=== PATIENT | male | born 1960 | race Caucasian/White ===

== ENCOUNTER 2020-11-24 06:47 | Day surgery (SDC) | payer OTHER ==
[2020-11-19 15:50] LABS: RBC Red Blood Cell Count 4.83 M/uL (4.33-5.43)
[2020-11-19 15:51] LABS: Basophils % 0.8 % (0-1.3); Lymphocytes % 21.3 % (15.3-44.8); MPV 8.6 fL (7.6-11.3)
[2020-11-19 15:55] LABS: Protime INR 0.88
--- NOTE | 2020-11-19 15:56 | RAD REPORT ---
EXAM DESCRIPTION: RAD - Chest Pa And Lat (2 Views) - 11/19/2020 3:38 pm CLINICAL HISTORY: PreOp COMPARISON: Abdomen Pelvis Wo Contrast dated 01/24/2019 FINDINGS: Lines: None. Lungs: No evidence of edema or pneumonia. Pleural: Convex structure along the right mid lung lateral hemothorax. This measures approximately 3. 7 x 1.5 cm . Cardiac: The heart size is within normal limits. Bones: No acute fractures. Other: IMPRESSION: No acute cardiopulmonary disease. Convexity located laterally along the right mid lung c ould be a healed rib fracture, overlapping osseous anatomy simulating a lesion, or pleural based lesi on. Nonemergent chest CT could confirm if clinically indicated.
[2020-11-19 15:59] LABS: Potassium 4.8 mmol/L (3.5-5.1)
--- NOTE | 2020-11-20 18:24 | EKG ---
Test Date: 2020-11-19 Test Time: 14:16:03 Analysis Evaluator: JEN MEASUREMENT RESULTS: Intervals: Rate: 68 AK: 182 QRSD: 90 QT: 394 QTc: 418 [place]: P: 70 AK: 182 QRS: 74 T: 61 INTERPRETIVE STATEMENTS: Normal sinus rhythm Normal ECG No previous ECG available for comparison Electronically Signed On 11-20-20 18:21:03 CDT by Momo Winn
[2020-11-24] MEDS ORDERED: Ringers Lactate 1,000 ML IV ONE (07:35)
[2020-11-24] MEDS ORDERED: CEFAZOLIN/SWI 1gm 1 GM/10 ML SYR ONE ×2 (07:35→09:06)
[2020-11-24] MEDS ORDERED: FENTANYL CITR 100 MCG/2 ML ONE (08:23)
[2020-11-24] MEDS ORDERED: MIDAZOLAM HCL 2 MG/2 ML INJ ONE (08:23)
[2020-11-24] MEDS ORDERED: propofoL 200 MG/20 ML VIAL IV ONE (08:23)
[2020-11-24] MEDS ORDERED: LIDOCAINE 1% MPF 5 ML VIAL ONE (08:24)
[2020-11-24] MEDS ORDERED: dexAMETHasone 10 MG/ML VIAL ONE (08:24)
[2020-11-24] MEDS ORDERED: ONDANSETRON 4 MG/2 ML VIAL ONE (08:24)
[2020-11-24] MEDS ORDERED: KETOROLAC 30 MG/ML INJ ONE (08:24)
[2020-11-24] MEDS ORDERED: CODEINE 30MG/APAP 300MG TAB PO PRN (09:41)
[2020-11-24] MEDS ORDERED: PHENAZOPYRIDINE 100MG TAB PO ONE ×2 (09:41→11:03)
[2020-11-24 10:37] VITALS: BP 124/69; TEMP 97.5; O2SAT 100
--- NOTE | 2020-11-24 10:45 | OP ---
Date of Procedure: 11/24/2020 Surgeon: NITIN LIANG Preoperative Diagnoses: 1.Voiding dysfunction/lower urinary tract obstructive symptoms. 2.Benign prostatic hypertrophy. 3.Poor detrusor contractility. 4.Primary bladder neck obstruction/dysfunction. Postoperative Diagnoses: 1.Voiding dysfunction/lower urinary tract obstructive symptoms. 2.Benign prostatic hypertrophy. 3.Poor detrusor contractility. 4.Primary bladder neck obstruction/dysfunction. Principle Procedures: Cystoscopy and transurethral resection of the prostate bladder neck. Indication For Procedure: Mr. Lau presented to the Urology Clinic with bothersome lower urinary sy mptoms. He underwent evaluation cystoscopically revealing mild elevation of a median bar with minima l lateral lobar hypertrophy. So, this was followed by urodynamic evaluation, which revealed evidence of voiding dysfunction with pseudodyssynergia and relatively weak detrusor contractility. The combi nation of each of these features was likely contributing to his poor flow and stream and bothersome u rinary symptoms, so I discussed with him options for surgical management since he was dissatisfied wi th medical management alone. Transurethral resection or incision of the prostate at the bladder neck was discussed to relieve the component of obstruction present there recognizing it may not completel y eliminate all of his symptoms given the weakness of his bladder, but it should decrease at least th e degree of the obstruction. The potential for retrograde ejaculation was also discussed and the pat ient decided to proceed, especially noting he already had the retrograde ejaculation from the medical therapy. Procedure In Detail: The patient was consented in the preoperative holding area before being transfe rred to the operative suite where general anesthesia was induced. He was given Ancef 2 g IV antimicr obial prophylaxis and pneumo boots were provided for DVT prophylaxis. He was placed in the lithotomy position, padded and secured to the table appropriately. His genitalia were prepped using Hibiclens and he was draped in standard fashion. The case was begun using urethral sounds to dilate the meatu s and fossa navicularis to 30-Swiss. Then, using the visual obturator and a 26-Swiss resectoscope, the urethra was traversed and the bladder entered with ease. The bladder was then surveyed and agai n no mucosal lesions, foreign bodies or stones were noted. The elevation of the median bar was noted relative to the bladder neck and the minimal lateral lobar hypertrophy was also noted. As a result, I distended his bladder gently and began the resection of the elevated median bar resecting it down to the level of the bladder neck continuing the resection of that median bar down to the level of the verumontanum. The verumontanum was left intact, once the median bar was completely resected and the re was a smooth move trough, the resection was continued bilaterally to the 5 o'clock and 7 o'clock p ositions respectively to eliminate any lateral to medial lobar hypertrophy and intrusion in that luis on. Once this was done, a careful fulguration of all bleeding sites was then performed, then I remov ed all prostate chips by evacuating his bladder. I then gently refilled his bladder again fulguratin g any bleeding vessels until the area was completely hemostatic. The survey of the prostatic urethra revealed a widely patent channel from the verumontanum all the way into the bladder. As a result, I left his bladder partially full and surveyed the urethra on the way out. I then placed a 22-Swiss 3-way Viramontes catheter into his bladder with ease, and approximately 30 mL of sterile water was placed in the balloon. The catheter was placed to a StatLock, and the patient was taken out of the lithotom y position. He was then awakened from general anesthesia, transferred to a stretcher, and then trans ferred to the recovery room in good condition. Complications: None. Discharge Disposition: He will follow up in the Urology Clinic within 3-5 days for catheter removal. Alternatively, he may elect to remove the catheter himself at home on Monday at the earliest, no la ter than 7 a.m. noting that if he is unable to void easily by 1 p.m., he should contact my office imm ediately for potential re-insertion of the catheter. Subsequent followup should be established with me in about 2 or 3 months interval assessme nt. EILEEN/MARKOSL Voice ID: [id number] Report ID: [id number]
[2020-11-24] MEDS ORDERED: CODEINE 30MG/APAP 300MG TAB ONE (11:03)
== END 2020-11-24 11:45 | disposition home or self-care (01) ==
LOC: OR 06:47
PROVIDERS: ATTEND Urology
PROC: 0VT08ZZ Resection of Prostate, Via Natural or Artificial Opening Endoscopic (ICD-10-PCS; principal; 2020-11-24 08:15)
DX: N40.1 Benign prostatic hyperplasia with lower urinary tract symptoms (principal); N39.8 Other specified disorders of urinary system; Z20.822 Contact with and (suspected) exposure to COVID-19
CPT/HCPCS: 93005; 87088; 85025; 87086; 80048; 36415; 85610; 88305; 71046; 52601; U0003; J2704; J2250; J3010; J1100; J0690 ×2; J7120; J2405

== ENCOUNTER 2021-05-18 09:38 | Day surgery (SDC) | payer OTHER ==
[2021-05-14 16:03] LABS: RBC Red Blood Cell Count 5.16 M/uL (4.33-5.43)
[2021-05-14 16:04] LABS: Absolute Lymphocytes (CBC) 1.3 K/uL (0.7-4.9); Hematocrit 45.8 % (39.6-49.0); Lymphocytes % 25.7 % (15.3-44.8)
[2021-05-14 16:15] LABS: Protime INR 0.99
[2021-05-14 16:26] LABS: Potassium 3.7 mmol/L (3.5-5.1)
[2021-05-18] MEDS ORDERED: Ringers Lactate 1,000 ML IV ONE (10:08)
[2021-05-18] MEDS ORDERED: CEFAZOLIN/SWI 2gm 2 GM/20 ML SYR ONE (10:08)
[2021-05-18] MEDS ORDERED: ACETAMINOPHEN 500 MG TAB ONE (11:30)
[2021-05-18] MEDS ORDERED: CELECOXIB 100 MG CAPSULE ONE (11:30)
[2021-05-18] MEDS ORDERED: MIDAZOLAM HCL 2 MG/2 ML INJ ONE (12:46)
[2021-05-18] MEDS ORDERED: propofoL 200 MG/20 ML VIAL IV ONE (12:46)
[2021-05-18] MEDS ORDERED: LIDOCAINE 1% MPF 5 ML VIAL ONE (12:46)
[2021-05-18] MEDS ORDERED: FENTANYL CITR 100 MCG/2 ML ONE (12:46)
[2021-05-18] MEDS ORDERED: ONDANSETRON 4 MG/2 ML VIAL ONE (12:47)
[2021-05-18] MEDS ORDERED: CODEINE 30MG/APAP 300MG TAB PO PRN (13:08)
[2021-05-18 13:44] VITALS: O2SAT 100
[2021-05-18 15:15] VITALS: BP 129/68; TEMP 97.5
--- NOTE | 2021-05-18 20:19 | OP ---
Surgeon: NITIN LIANG Preoperative Diagnoses: 1.BPH with lower urinary tract symptoms. 2.Status post TUR of the bladder neck. Postoperative Diagnoses: 1.BPH with lower urinary tract symptoms. 2.Status post TUR of the bladder neck. Principal Procedure: UroLift/prostatic urethral lift with 3 implants placed. Indication For Procedure: Mr. Lau is a 60-year-old gentleman, who presented to Urology Clinic with obstructive lower urinary symptoms and only mild BPH noted on cystoscopic evaluation. He underwent urodynamic evaluation which revealed stigmata suggestive of primary bladder neck dysfunction, and he underwent TUR of the bladder neck. This did improve his symptoms somewhat and improved his emptying to a degree, but he had persistent obstructive symptoms that were mildly bothersome to him. As a res ult, he was counseled that further improvement in his urinary symptoms would only be achieved by pote ntial further management of the residual lateral lobar hypertrophy. As a result, he was counseled on the options for management and UroLift was discussed and agreed upon. Procedure In Detail: The patient was consented in the preoperative holding area before being transfe rred to operative suite where general anesthesia was induced. He was given Ancef 2 g IV antimicrobia l prophylaxis and pneumo boots were provided for DVT prophylaxis. He was placed in the lithotomy pos ition, padded and secured to the table appropriately. His genitalia were prepped using Hibiclens and draped in standard fashion. The case was begun using a 20-[place] cystoscope for the UroLift device. The urethra was traversed and the bladder entered. The bladder was decompressed of fluid and urine , and there were no mucosal lesions, foreign bodies or stones noted throughout. The prior evidence o f TUR of the bladder neck with a widely patent bladder neck was observed. There was [id number] lateral lobar hypertrophy and the length of the gland was only approximately 3 cm. As a result, the initial implant was determined to be placed in the region of the verumontanum in the left lateral lo be of the prostate first. As a result, the first treatment was applied just superior to the verumont rhoda and the anterior 1/3 of the lateral lobe on the left side. The distal tip of the delivery devic e was angled laterally approximately 20 degrees to compress the lateral lobe. The trigger was pulled thereby deploying a needle containing the implant through the prostate. The needle was retracted, a llowing one end of the implant to be delivered to the capsular surface of the prostate. The implant was then tensioned to assure capsular seeding and removal slack monofilament. The device was then an gled back toward midline and slowly advance proximally until cystoscopic verification of the monofila ment being centered in the delivery bay. The urethral end piece was then affixed to the monofilament thereby tailoring the size of the implant. Excess filament was then severed. The delivery device w as then readvanced into the bladder. The delivery device was then replaced with a second delivery de vice, and a similar implant was placed in the contralateral right lateral lobe at the level of the ve rumontanum. I then readvanced the device back into the bladder and removed it and switched it for th e cystoscope bridge. I then surveyed the channel that had been created. While nice channel had larg lauren been created, there was a degree of asymmetry with some slight left anterior lateral overhang fro m the anterior. As a result, I elected to place one additional implant in a stacked fashion above th e originally placed implant on the left in a more anterior position, and I was able to elevate that t issue creating a very nice symmetric open anterior channel from the bladder neck all the way down to the view of the prostate. The bladder was observed cystoscopically with it being decompressed and th e channel was yet still patent. I then surveyed the bladder neck for any sign of implant inadvertent ly placed into the bladder, and none was noted. I then left his bladder full and removed the cystosc ope replacing it with an 18-[place] urethral Viramontes catheter. 15 cc of sterile water was placed in the balloon, and the catheter was connected to a leg bag. The patient was taken out of the lithotomy po sition, awakened from general anesthesia, transferred to a stretcher, and then transferred to the rec overy room in good condition. Complications: None. Discharge Disposition: He should remove the urethral Viramontes catheter tomorrow at 7 a.m. and ensure th at he is able to void by 1 to 3 p.m. with ease. If not, he should contact the office and come in for catheter replacement. Subsequent followup should be established in about 1 month to reassess his sy mptomatology since the UroLift. At that time, we will consider having him discontinue all BPH relate d medications. WR/MODL Voice ID: [id number] Report ID: [id number]
== END 2021-05-18 15:05 | disposition home or self-care (01) ==
LOC: OR 09:38
PROVIDERS: ATTEND Urology
PROC: 0T7D8DZ Dilation of Urethra with Intraluminal Device, Via Natural or Artificial Opening Endoscopic (ICD-10-PCS; principal; 2021-05-18 11:30)
DX: N40.1 Benign prostatic hyperplasia with lower urinary tract symptoms (principal); Z20.822 Contact with and (suspected) exposure to COVID-19
CPT/HCPCS: 87088; 85025; 87086; 80048; 36415; 85610; 52441; 52442 ×2; U0003; J2704; J2250; J3010; J0690; J7120; J2405

== ENCOUNTER 2021-05-18 17:15 | Emergency (ER) | payer OTHER ==
--- OUTSIDE RECORDS SUMMARY | 2021-05-18 17:18 | XMS REPORT | Continuity of Care Document ---
:[address] [facility] t Address [address] [place] [address] Care Team Providers Name Role Phone HUGO E Primary Care Physician Unavailable Hugo E Attending Clinician Unavailable Marga PADGETT Attending Clinician Unavailable Marga PADGETT Attending Clinician Unavailable Doctor Unassigned, Name Attending Clinician Unavailable Yessica POON Attending Clinician Payers Payer Name Policy Type Policy Number Effective Date Expiration Date Ashish LOVING PLS [id number] 2021 00:00:00 HMO Problems Condition Condition Condition Status Onset Resolution Last Treating Co mments Source Name Details Category Date Date Treatment Clinician Date Nontraumat Nontraumat Disease Active Overview : Univers ic ic 6-03 Formattin ity of incomplete incomplete 00:00: g of this [place] tear of tear of 00 note Medical left left might be Branch rotator rotator different cuff cuff from the original. Added automatic ally from request for surgery [id number] Traumatic Traumatic Disease Active Overview: Univers complete complete 6-03 Formattin ity of tear of tear of 00:00: g of this [place] right right 00 note Medical rotator rotator might be Branch cuff, cuff, different initial initial from the encounter encounter original. Added automatic ally from request for surgery [id number] Trigger Trigger Disease Active Overview: Univ ers middle middle 7-06 Formattin ity of finger of finger of 00:00: g of this [place] right hand right hand 00 note Me dical might be Branch different from the original. Added automatic ally from request for surgery [id number] Allergies, Adverse Reactions, Alerts Allergy Allergy Status Severity Reaction(s) Onset Inactive Treating Comm ents Source Name Type Date Date Clinician NO KNOWN Drug Active Univers ALLERGIE Class ity of S [facility] Social History Social Habit Start Date Stop Date Quantity Comments Source History SDOH University o f Alcohol Frequency [place] M edical History SDOH University o f Alcohol Std Drinks [place] [facility] Branch History SDHI University o f Alcohol Binge [facility] al Branch Exposure to Not sure [facility] SARS-CoV-2 (event) [facility] Alcohol intake 2021-04-16 2021-04-16 9.71 /d University of 00:00:00 00:00:00 [facility] Cigarettes smoked 2019-09-12 2019-09-12 Univers ity of current (pack per 00:00:00 00:00:00 [place] ) - Reported Branch Tobacco use and 2019-09-12 2019-09-12 Former user Universi ty of exposure 00:00:00 00:00:00 [facility] Alcohol Comment 2017-07-26 2017-07-26 Drinks every Univers ity of 00:00:00 00:00:00 other day. [place] Medical History of Branch Whiskey Drinking. History of tobacco 1974-07-26 2012-07-26 User of Univer sity of use 00:00:00 00:00:00 smokeless [facility] tobacco [place] Sex Assigned At [birth year] Universit y of 00:00:00 00:00:00 [facility] Smoking Status Start Date Stop Date Source Former smoker 2019-09-12 00:00:00 2019-09-12 00:00:00 Universi ty of [facility] Medications Ordered Filled Start Stop Current Ordering Indication Dosage Frequency Signature Comments Components Source Medication Medication Date Date Medication? Clinician (SIG) Name Name cyclobenzap Yes [id number] 5mg Take 1 Univers rine 5 mg 2-11 tablet by ity o f tablet 00:00: mouth 3 [place] 00 (three) Medical times Branch daily. cyclobenzap Yes [id number] 5mg Take 1 Univers rine 5 mg 2-11 tablet by ity o f tablet 00:00: mouth 3 [place] 00 (three) Medical times Branch daily. cyclobenzap 2-0 Yes [id number] 5mg Take 1 Univers rine 5 mg 2-11 tablet by ity o f tablet 00:00: mouth 3 [place] (three) Medical times Branch daily. fluticasone 2020-0 Yes [id number] 1{spray Use 1 Univers propionate 4-30 } [place] in ity o f 50 00:00: each [place] mcg/actuati 00 nostril Medic al on nasal daily. Branch spray fluticasone 2020-0 Yes [id number] 1{spray Use 1 Univers propionate 4-30 } [place] in ity o f 50 00:00: each [place] mcg/actuati 00 nostril Medic al on nasal daily. Branch spray fluticasone 2020-0 Yes [id number] 1{spray Use 1 Univers propionate 4-30 } [place] in ity o f 50 00:00: each [place] mcg/actuati 00 nostril Medic al on nasal daily. Branch spray fluticasone 2020-0 Yes [id number] 1{spray Use 1 Univers propionate 4-30 } [place] in ity o f 50 00:00: each [place] mcg/actuati 00 nostril Medic al on nasal daily. Branch spray fluticasone 2020-0 Yes [id number] 1{spray Use 1 Univers propionate 4-30 } [place] in ity o f 50 00:00: each [place] mcg/actuati 00 nostril Medic al on nasal daily. Branch spray methylPREDN 2020-0 Yes [id number] Take by Univers ISolone 4 3-16 mouth ity of mg tablets 00:00: SEE-INSTRU [place] 00 CTIONS. Medical follow Branch package directions methylPREDN 2020-0 Yes [id number] Take by Univers ISolone 4 3-16 mouth ity of mg tablets 00:00: SEE-INSTRU [place] 00 CTIONS. Medical follow Branch package directions methylPREDN 202-0 Yes [id number] Take by Univers ISolone 4 3-16 mouth ity of mg tablets 00:00: SEE-INSTRU [place] 00 CTIONS. Medical follow Branch package directions methylPREDN 2020-0 Yes [id number] Take by Univers ISolone 4 3-16 mouth ity of mg tablets 00:00: SEE-INSTRU [place] 00 CTIONS. Medical follow Branch package directions methylPREDN 2020-0 Yes [id number] Take by Univers ISolone 4 3-16 mouth ity of mg tablets 00:00: SEE-INSTRU [place] 00 CTIONS. Medical follow Branch package directions methylPREDN 2020-0 Yes [id number] 84mg Take 21 Univers ISolone 6-04 tablets by ity of (MEDROL, 00:00: mouth [place] ANDREAS,) 4 mg 00 SEE-INSTRU Med ical tablets CTIONS. Branch follow package directions methylPREDN 2020-0 Yes [id number] 84mg Take 21 Univers ISolone 6-04 tablets by ity of (MEDROL, 00:00: mouth [place] ANDREAS,) 4 mg 00 SEE-INSTRU Med ical tablets CTIONS. Branch follow package directions methylPREDN 2020-0 Yes [id number] 84mg Take 21 Univers ISolone 6-04 tablets by ity of (MEDROL, 00:00: mouth [place] ANDREAS,) 4 mg 00 SEE-INSTRU Med ical tablets CTIONS. Branch follow package directions methylPREDN 2020-0 Yes [id number] 84mg Take 21 Univers ISolone 6-04 tablets by ity of (MEDROL, 00:00: mouth [place] ANDREAS,) 4 mg 00 SEE-INSTRU Med ical tablets CTIONS. Branch follow package directions methylPREDN 2020-0 Yes [id number] 84mg Take 21 Univers ISolone 6-04 tablets by ity of (MEDROL, 00:00: mouth [place] ANDREAS,) 4 mg 00 SEE-INSTRU Med ical tablets CTIONS. Branch follow package directions doxycycline 2020-0 Yes TAKE 1 Univ ers hyclate 100 5-15 TABLET BY ity of mg tablet 00:00: MOUTH ONCE [place] 00 DAILY WITH Medical FOOD DO Branch NOT LIE DOWN FOR 1 HOUR AFTER TAKING mupirocin 2 2020-0 Yes APPLY A Uni vers % ointment 5-15 SMALL ity of 00:00: AMOUNT TO [place] 00 BOTH NARES Medical ONCE Branch WEEKLY FOR 30 DAYS doxycycline 2020-0 Yes TAKE 1 Univ ers hyclate 100 5-15 TABLET BY ity of mg tablet 00:00: MOUTH ONCE [place] 00 DAILY WITH Medical FOOD DO Branch NOT LIE DOWN FOR 1 HOUR AFTER TAKING mupirocin 2 2020-0 Yes APPLY A Uni vers % ointment 5-15 SMALL ity of 00:00: AMOUNT TO [place] BOTH NARES Medical ONCE Branch WEEKLY FOR 30 DAYS doxycycline 2020-0 Yes TAKE 1 Univ ers hyclate 100 5-15 TABLET BY ity of mg tablet 00:00: MOUTH ONCE [place] 00 DAILY WITH Medical FOOD DO Branch NOT LIE DOWN FOR 1 HOUR AFTER TAKING mupirocin 2 2020-0 Yes APPLY A Uni vers % ointment 5-15 SMALL ity of 00:00: AMOUNT TO [place] BOTH NARES Medical ONCE Branch WEEKLY FOR 30 DAYS doxycycline 2020-0 Yes TAKE 1 Univ ers hyclate 100 5-15 TABLET BY ity of mg tablet 00:00: MOUTH ONCE [place] 00 DAILY WITH Medical FOOD DO Branch NOT LIE DOWN FOR 1 HOUR AFTER TAKING mupirocin 2 2020-0 Yes APPLY A Uni vers % ointment 5-15 SMALL ity of 00:00: AMOUNT TO [place] BOTH NARES Medical ONCE Branch WEEKLY FOR 30 DAYS doxycycline 2020-0 Yes TAKE 1 Univ ers hyclate 100 5-15 TABLET BY ity of mg tablet 00:00: MOUTH ONCE [place] 00 DAILY WITH Medical FOOD DO Branch NOT LIE DOWN FOR 1 HOUR AFTER TAKING mupirocin 2 2020-0 Yes APPLY A Uni vers % ointment 5-15 SMALL ity of 00:00: AMOUNT TO [place] BOTH NARES Medical ONCE Branch WEEKLY FOR 30 DAYS fluticasone 2020-0 Yes USE 2 Unive rs propionate 5-12 SPRAY(S) ity o f 50 00:00: IN EACH [place] mcg/actuati 00 NOSTRIL Medic al on nasal TWICE Branch spray DAILY fluticasone 2020-0 Yes USE 2 Unive rs propionate 5-12 SPRAY(S) ity o f 50 00:00: IN EACH [place] mcg/actuati 00 NOSTRIL Medic al on nasal TWICE Branch spray DAILY fluticasone 2020-0 Yes USE 2 Unive rs propionate 5-12 SPRAY(S) ity o f 50 00:00: IN EACH [place] mcg/actuati 00 NOSTRIL Medic al on nasal TWICE Branch spray DAILY fluticasone 2020-0 Yes USE 2 Unive rs propionate 5-12 SPRAY(S) ity o f 50 00:00: IN EACH [place] mcg/actuati 00 NOSTRIL Medic al on nasal TWICE Branch spray DAILY fluticasone 2020-0 Yes USE 2 Unive rs propionate 5-12 SPRAY(S) ity o f 50 00:00: IN EACH [place] mcg/actuati 00 NOSTRIL Medic al on nasal TWICE Branch spray DAILY tamsulosin Yes TAKE 1 Unive rs 0.4 mg 24 4-17 CAPSULE BY ity of hr capsule 00:00: MOUTH ONCE [place] 00 DAILY FOR Medical 90 DAYS Branch tamsulosin 2019-0 Yes TAKE 1 Unive rs 0.4 mg 24 4-17 CAPSULE BY ity of hr capsule 00:00: MOUTH ONCE [place] DAILY FOR Medical 90 DAYS Branch tamsulosin 0 Yes TAKE 1 Unive rs 0.4 mg 24 4-17 CAPSULE BY ity of hr capsule 00:00: MOUTH ONCE [place] DAILY FOR Medical 90 DAYS Branch tamsulosin Yes TAKE 1 Unive rs 0.4 mg 24 4-17 CAPSULE BY ity of hr capsule 00:00: MOUTH ONCE [place] DAILY FOR Medical 90 DAYS Branch tamsulosin Yes TAKE 1 Unive rs 0.4 mg 24 4-17 CAPSULE BY ity of hr capsule 00:00: MOUTH ONCE [place] DAILY FOR Medical 90 DAYS Branch Tamsulosin Tamsulosin 0 2020- No Rosibel [address] [facility] HCl HCl 4-17 10-14 Guanako Freeman - 00:00: 00:00 Memoria 00 :00 [facility] ent Clinics CITALOPRAM Yes TAKE 1 Unive rs 20 mg 6-06 TABLET BY ity of tablet 00:00: MOUTH ONCE [place] DAILY Medical Branch CITALOPRAM Yes TAKE 1 Unive rs 20 mg 6-06 TABLET BY ity of tablet 00:00: MOUTH ONCE [place] DAILY Medical Branch CITALOPRAM Yes TAKE 1 Unive rs 20 mg 6-06 TABLET BY ity of tablet 00:00: MOUTH ONCE [place] DAILY Medical Branch CITALOPRAM Yes TAKE 1 Unive rs 20 mg 6-06 TABLET BY ity of tablet 00:00: MOUTH ONCE DAILY Medical Branch CITALOPRAM Yes TAKE 1 Unive rs 20 mg 6-06 TABLET BY ity of tablet 00:00: MOUTH ONCE [place] DAILY Medical Branch Vital Signs Vital Name Observation Time Observation Value Comments Source Body temperature 2021-04-14 14:49:00 36.06 Tran [facility] [place] [facility] Body height 2021-04-14 14:49:00 175.3 cm [facility] Body weight 2021-04-14 14:49:00 81.874 kg [facility] BMI 2021-04-14 14:49:00 26.66 kg/m2 [facility] Procedures Procedure Date / Time Performing Clinician Source Performed INSURANCE CORRESPONDENCE 2021-04-22 06:01:00 Doctor Unassigned, [facility] Encounters Start End Encounter Admission Attending Care Care Encounter Source Date/Time Date/Time Type Type Clinicians Facility Department ID 2021-05-11 Outpatient Arias, STLMLC STLC [id number] [facility] 08:34:01 Ernesto [id number] [facility] 2021-03-31 Outpatient Arias, STLMLC STLMLC [id number] [facility] 13:46:52 Ernesto [id number] [facility] 2021-03-31 Outpatient Arias, STLMLC STLMLC [id number] [facility] 13:42:03 Ernesto [id number] [facility] 2021-03-31 Outpatient Arias, STLMLC STLMLC [id number] [facility] 13:21:38 Ernesto [id number] [facility] 2021-06-24 2021-06-24 Outpatient R [facility] [id number] Univers 19:30:00 19:30:00 [id number] [facility] 2021-06-24 2021-06-24 Outpatient R NICK PADGETT [facility] [id number] Univers 19:30:00 19:30:00 NICK PADGETT [facility] 2021-05-29 2021-05-29 Outpatient R [facility] [id number] Univers 19:30:00 19:30:00 [id number] [facility] 2021-05-29 2021-05-29 Outpatient R NICK PADGETT [facility] [id number] Univers 19:30:00 19:30:00 NICK PADGETT [facility] 2021-05-27 2021-05-27 Outpatient R [facility] [id number] Univers 13:00:00 13:00:00 [id number] ity of [facility] 2021-05-27 2021-05-27 Outpatient R [facility] [id number] Univers 13:00:00 13:00:00 ity of [facility] 2021-04-26 2021-04-26 ambulatory [facility]LMLC [facility] [id number] [facility] 2021-04-22 2021-04-22 Orders Doctor RUKHSANA [id number] Univers 00:00:00 00:00:00 Only Unassigned, JASMYNE [id number] ity of [facility] [id number] [place] as [id number] [address] 2021-04-22 2021-04-22 Telephone [facility] [id number] Univers 00:00:00 00:00:00 Alexy CHAU [id number] i ty of [facility] [id number] [place] [id number] [facility] [address] 2021-04-21 2021-04-21 Telephone [facility] [id number] Univers 00:00:00 00:00:00 Alexy CHAU [id number] i ty of [facility] [id number] [id number] [address] 2021-04-14 2021-04-14 Office [facility] [id number] Univers 09:00:00 09:15:00 Visit Alexy CHAU [id number] i ty of [facility] [id number] [place] [id number] [address] 2021-03-17 2021-03-17 ambulatory [facility]LMLC [facility] [id number] [facility] 2021-01-27 2021-01-27 ambulatory [facility]LMLC [facility] [id number] [facility] 2021-01-27 2021-01-27 ambulatory [facility]MLC [facility] [id number] [facility] 2020-11-27 2020-11-27 Outpatient [facility]ML[facility] [id number] [facility] 2020-11-11 2020-11-11 Outpatient [facility] [id number] [facility] 2020-10-28 2020-10-28 ambulatory [facility]LMLC [facility] [id number] [facility] 2020-09-28 2020-09-28 Outpatient [facility]MLC [facility] [id number] [facility] 2020-07-23 2020-07-23 Outpatient [facility]MLC [facility] [id number] [facility] 2020-07-08 2020-07-08 Outpatient [facility]LMLC [facility] [id number] [facility] 2020-05-27 2020-05-27 Outpatient [facility]MLC [facility] [id number] [facility] 2019-11-28 2019-11-28 Outpatient [facility]MLC [facility] [id number] [facility] 2019-09-13 2019-09-13 Outpatient Alysha Medellin [id number] [facility] 13:01:00 13:01:00 t Specialty/U Melody kes - Specialty rology [facility] /Urology Clinic l Clinic Outpati ent Clinics 2019-08-27 2019-08-27 Outpatient Alysha Encarnaciont [id number] [facility] 10:26:00 10:26:00 t [facility] 2019-06-21 2019-06-21 [facility] [id number] [facility] [address] 10:40:00 10:40:00 t Specialty/U Melody monges - Specialty rology [facility] a /Urology Clinic [facility] Results This patient has no known results.
--- NOTE | 2021-05-18 18:00 | ER ---
Nurse's Notes [facility] Name: Ray Lau Age: 60 yrs Sex: Male : 1960 Arrival Date: 05/18/2021 Time: 17:17 Bed 15 Private MD: Diagnosis: Viramontes Catheter problem;Urinary urgency Presentation: 05/18 17:35 Chief complaint: Patient states: Had a urolift 3 hours ago, reports 1 tablespoon out jl7 since. Coronavirus screen: At this time, the client does not indicate any symptoms associated with coronavirus-19. Ebola Screen: No symptoms or risks identified at this time. 17:35 Method Of Arrival: Ambulatory jl7 17:35 Initial Sepsis Screen: Does the patient meet any 2 criteria? No. Patient's initial jl7 sepsis screen is negative. Does the patient have a suspected source of infection? No. Patient's initial sepsis screen is negative. Risk Assessment: Do you want to hurt yourself or someone else? Patient reports no desire to harm self or others. Onset of symptoms was May 18, 2021 at 15:00. 17:35 Acuity: ANITA 3 jl7 Triage Assessment: 18:01 General: Appears in no apparent distress. uncomfortable, Behavior is calm, cooperative, jl7 appropriate for age. Pain: Complains of pain in pelvis Pain currently is 0 out of 10 on a pain scale. at worst was 7 out of 10 on a pain scale. Neuro: Historical: - Allergies: 18:01 No Known Allergies; jl7 - Home Meds: 18:01 None [Active]; jl7 - PMHx: 18:01 None; jl7 - PSHx: 18:01 TURP; urolift; jl7 - Immunization history:: Client reports receiving the 2nd dose of the Covid vaccine. - Social history:: Smoking status: Patient/guardian denies using tobacco, the patient reports quitting approximately 2 years ago. Screenin:37 Abuse screen: Denies threats or abuse. Nutritional screening: No deficits noted. ap3 Tuberculosis screening: No symptoms or risk factors identified. 18:06 Fall Risk None identified. ap3 Vital Signs: 17:35 Weight 81.65 kg; Height 5 ft. 9 in. (175.26 cm); Pain 7/10; jl7 17:44 BP 164 / 91; Pulse 62; Pulse Ox 100% on R/A; ap3 17:35 Body Mass Index 26.58 (81.65 kg, 175.26 cm) jl7 ED Course: 17:17 Patient arrived in ED. mr 17:18 Ceasar Martinez DO is Attending Physician. ms3 17:38 Arm band placed on right wrist. ap3 17:50 Bladder scan completed. 36 mL. jl7 17:58 Lázaro Mcwilliams MD is Referral Physician. ms3 18:01 Triage completed. jl7 18:05 Yecenia Mercado, RN is Primary Nurse. ap3 18:05 No provider procedures requiring assistance completed. Patient did not have IV access ap3 during this emergency room visit. 18:06 Patient has correct armband on for positive identification. Placed in gown. Bed in low ap3 position. Call light in reach. Side rails up X 1. Pulse ox on. NIBP on. Door closed. Noise minimized. Warm blanket given. Administered Medications: No medications were administered Outcome: 18:00 Discharge ordered by . ms3 18:06 Discharged to home ambulatory. ap3 18:06 Condition: good 18:06 Discharge instructions given to patient, Instructed on discharge instructions, follow up and referral plans. Demonstrated understanding of instructions, follow-up care. 18:08 Patient left the ED. ap3 Signatures: Rossana Jones mr RamseyJohn RN RN 7 Yecenia Mercado, NGA SYLVESTER ap3 Ceasar Martinez DO DO ms3
--- NOTE | 2021-05-18 18:00 | EDPHYS ---
Physician Documentation [facility] Name: Ray Lau Age: 60 yrs Sex: Male : 1960 Arrival Date: 05/18/2021 Time: 17:17 Bed 15 Private MD: ED Physician Ceasar Martinez HPI: 05/18 17:36 This 60 yrs old Male presents to ER via Unassigned with complaints of Problem With ms3 Urinary Catheter. 17:36 The patient presents with a Viramontes catheter problem, is not draining. Onset: The ms3 symptoms/episode began/occurred today. Modifying factors: The symptoms are alleviated by nothing, the symptoms are aggravated by nothing. Associated signs and symptoms: The patient has no apparent associated signs or symptoms. 60-year-old male presents status post prostate lift earlier today stating his Viramontes catheter is not draining. Patient states he feels a blood clot has clotted the end of his catheter. Patient states he attempted to blow air into his catheter without success. Patient denies pain at this time. Patient denies alleviating or inciting factors.. Historical: - Allergies: 18:01 No Known Allergies; jl7 - Home Meds: 18:01 None [Active]; jl7 - PMHx: 18:01 None; jl7 - PSHx: 18:01 TURP; urolift; jl7 - Immunization history:: Client reports receiving the 2nd dose of the Covid vaccine. - Social history:: Smoking status: Patient/guardian denies using tobacco, the patient reports quitting approximately 2 years ago. ROS: 17:36 Constitutional: Negative for fever, and chills. Eyes: Negative for injury, pain, ms3 redness, and discharge, ENT: Negative for injury, pain, and discharge, Neck: Negative for injury, pain, and swelling, Cardiovascular: Negative for chest pain, and palpitations. Respiratory: Negative for shortness of breath, cough, wheezing, and pleuritic chest pain, Abdomen/GI: Negative for abdominal pain, nausea, vomiting, diarrhea, and constipation, Back: Negative for injury and pain, MS/Extremity: Negative for injury and deformity, Skin: Negative for injury, rash, and discoloration, Neuro: Negative for headache, weakness, numbness, tingling. 17:36 : Positive for difficulty urinating. 17:36 All other systems are negative. Exam: 17:36 Constitutional: This is a well developed, well nourished patient who is awake, alert, ms3 and in no acute distress. Head/Face: Normocephalic, atraumatic. Eyes: Pupils equal round and reactive to light, extra-ocular motions intact. Lids and lashes normal. Conjunctiva and sclera are non-icteric and not injected. Periorbital areas with no swelling, redness, or edema. Neck: Trachea midline, no cervical lymphadenopathy. Supple, full range of motion without nuchal rigidity, or vertebral point tenderness. No Meningismus. Chest/axilla: Normal chest wall appearance and motion. Nontender with no deformity. Cardiovascular: Regular rate and rhythm with a normal S1 and S2. No gallops, murmurs, or rubs. Normal PMI, no JVD. No pulse deficits. Respiratory: Lungs have equal breath sounds bilaterally, clear to auscultation and percussion. No rales, rhonchi or wheezes noted. No increased work of breathing, no retractions or nasal flaring. Abdomen/GI: Soft, non-tender, with normal bowel sounds. No distension or tympany. No guarding or rebound. No evidence of tenderness throughout. Back: No spinal tenderness. No costovertebral tenderness. Full range of motion. Skin: Warm, dry with normal turgor. Normal color with no rashes, no lesions, and no evidence of cellulitis. Neuro: Awake and alert, GCS 15, oriented to person, place, time, and situation. Cranial nerves II-XII grossly intact. Motor strength 5/5 in all extremities. Sensory grossly intact. Cerebellar exam normal. Normal gait. Vital Signs: 17:35 Weight 81.65 kg; Height 5 ft. 9 in. (175.26 cm); Pain 7/10; jl7 17:44 BP 164 / 91; Pulse 62; Pulse Ox 100% on R/A; ap3 17:35 Body Mass Index 26.58 (81.65 kg, 175.26 cm) jl7 MDM: 17:35 Patient medically screened. ms3 18:00 Differential diagnosis: urinary retention, Viramontes catheter problem. Data reviewed: vital ms3 signs, nurses notes. Data interpreted: Pulse oximetry: on room air is 100 %. Counseling: I had a detailed discussion with the patient and/or guardian regarding: the historical points, exam findings, and any diagnostic results supporting the discharge/admit diagnosis, the need for outpatient follow up, to return to the emergency department if symptoms worsen or persist or if there are any questions or concerns that arise at home. ED course: Discussed physical exam findings with patient. Bladder scan showed 36 cc of urine in patient's bladder. Viramontes catheter with urine drainage. Patient to follow-up with Dr. Mcwilliams in 1 to 2 days. Patient understands and agrees with plan. All questions were answered. Return precautions discussed include worsening symptoms, or any other concerns.. Administered Medications: No medications were administered Disposition Summary: 05/18/21 18:00 Discharge Ordered Location: Home ms3 Problem: new ms3 Condition: Stable ms3 Diagnosis - Viramontes Catheter problem ms3 - Urinary urgency ms3 Followup: ms3 - With: Lázaro Mcwilliams MD - When: 1 - 2 days - Reason: Discharge Instructions: - Discharge Summary Sheet ms3 - Indwelling Urinary Catheter Care, Adult ms3 Forms: - Medication Reconciliation Form ms3 - Thank You Letter ms3 - Antibiotic Education ms3 - Prescription Opioid Use ms3 Signatures: John Ramsey, RN RN jl7 Ceasar Martinez DO DO ms3
[2021-05-18 19:05] VITALS: BP 164/91; O2SAT 100
== END 2021-05-18 18:08 | disposition home or self-care (01) ==
LOC: ER 17:15
DX: R33.9 Retention of urine, unspecified (principal); T83.9XXA Unspecified complication of genitourinary prosthetic device, implant and graft, initial encounter
CPT/HCPCS: 99282